=== PATIENT | female | born 2000 | race Caucasian/White ===

== ENCOUNTER 2021-10-07 23:38 | Emergency (ER) | payer OTHER ==
[~2021-10-07] VITALS: Ht 154.9 cm; Wt 76.0 kg
[2021-10-07 23:50] VITALS: BP 131/72
--- NOTE | 2021-10-07 23:55 | NUR ---
PT TAKEN TO BED 08.
[2021-10-08] MEDS ORDERED: LIDOCAINE MPF 1% 10 MG/ML VIAL INJ ONE (00:15)
--- NOTE | 2021-10-08 01:05 | NUR ---
Dr. Blake examining patient.
--- NOTE | 2021-10-08 01:05 | NUR ---
21 YO F BIB SELF WITH C/O LT ELBOW LACERATION. PT FELL ON DOOR LOCK OPENING AND IT LACERATED HER ELBOW. PT STATES PAIN 10/24. PT TOOK ADVIL FOR PAIN. PT DENIES FALLING, TRAUMA OR ALOC. PT DENIES CHEST PAIN, SOB , N/F/V/ DIZZINESS. NO PMH ALLERGIES: MARIAELENA
[2021-10-08 01:50] VITALS: BP 131/72
--- NOTE | 2021-10-08 01:50 | NUR ---
Patient discharged with v/s stable. Written and verbal after care instructions given and explained. Patient verbalized understanding. Ambulatory with steady gait. All questions addressed prior to discharge. Advised to follow up with PMD.
== END 2021-10-08 01:50 | disposition home or self-care (01) ==
LOC: MED 23:38
DX: S51.012A Laceration without foreign body of left elbow, initial encounter (principal); W45.8XXA Other foreign body or object entering through skin, initial encounter; Y93.89 Activity, other specified; Y92.89 Other specified places as the place of occurrence of the external cause; Y99.8 Other external cause status
CPT/HCPCS: 12002; 99282; J2001